=== PATIENT | male | born 1945 | race Caucasian/White ===

== ENCOUNTER 2017-07-16 08:43 | Observation (INO) | payer MEDICARE, BC ==
[~2017-07-16 08:43] MED LIST: IBUP800 PO; Keflex500 MG PO; LANS30EC PO; PRED10 PO; Prilosec Otc20 MG PO
[2017-07-16 09:46] LABS: Hematocrit 46.4 % (37.0-53.0); Hemoglobin 15.8 g/dL (13.5-17.5); Mean Corpuscular HGB 30.4 pg (26.0-34.0); Mean Corpuscular HGB Conc 34.1 g/dL (31.5-36.5); Mean Corpuscular Volume 89 fL (80-100); Mean Platelet Volume 10.2 fL (9.1-12.4); Platelet Count 243 K/mm3 (150-400); RDW Coefficient Variation 12.2 % (11.7-14.2); RDW Standard Deviation 39.7 fL (35.1-46.3); White Blood Cell Count 8.18 K/mm3 (4.00-11.30)
[2017-07-17 04:23] LABS: Hematocrit 43.6 % (37.0-53.0); Hemoglobin 14.9 g/dL (13.5-17.5); Mean Corpuscular HGB 30.2 pg (26.0-34.0); Mean Corpuscular HGB Conc 34.2 g/dL (31.5-36.5); Mean Corpuscular Volume 88 fL (80-100); Mean Platelet Volume 10.5 fL (9.1-12.4); Platelet Count 216 K/mm3 (150-400); RDW Coefficient Variation 12.2 % (11.7-14.2); RDW Standard Deviation 39.4 fL (35.1-46.3); Red Blood Cell Count 4.93 M/mm3 (4.30-5.90); White Blood Cell Count 8.41 K/mm3 (4.00-11.30)
[2017-07-17 04:47] LABS: Albumin, Blood 3.4 g/dL (3.4-5.0); Anion Gap 8 mmol/L (6-16); Blood Urea Nitrogen 14 mg/dL (8-24); CO2, Blood 25 mmol/L (21-32); Calcium, Blood 8.3 mg/dL (8.5-10.1); Chloride, Blood 108 mmol/L (98-108); Creatinine, Blood 0.88 mg/dL (0.60-1.20); Glomerular Filtration Rate >60 (60-); Glucose, Blood 104 mg/dL (70-99); Phosphorus, Blood 2.9 mg/dL (2.5-4.9); Potassium, Blood 3.7 mmol/L (3.5-5.5); Sodium, Blood 141 mmol/L (136-145)
== END 2017-07-17 10:55 | disposition home or self-care (01) ==
LOC: ORSCMMR 08:43 → SURS 12:07 → ORSCMMR 12:07 → SURS 12:07
PROVIDERS: Internal Medicine Gastroenterology
PROC: 0W3P8ZZ Control Bleeding in Gastrointestinal Tract, Via Natural or Artificial Opening Endoscopic (ICD-10-PCS; principal; 2017-07-16 08:30)
DX: K91.840 Postprocedural hemorrhage of a digestive system organ or structure following a digestive system procedure (principal); K21.9 Gastro-esophageal reflux disease without esophagitis; Z88.1 Allergy status to other antibiotic agents
CPT/HCPCS: 36415; 80069; 85018; 85027; G0378; J3480; J7120

== ENCOUNTER 2018-05-29 14:12 | Inpatient (IN) | payer MEDICARE, BC ==
[~2018-05-29] VITALS: Ht 177.8 cm; Wt 83.5 kg
[2018-06-02] MEDS ORDERED: ACET325 PO (06:58)
--- NOTE | 2018-06-02 06:59 | NUR ---
Ambulatory in Day Surgery History, Chart, Medications and Allergies reviewed before start of procedure. Lungs clear T/O to Auscultation. Patient confirms NPO status and agrees with scheduled surgery. Pre-Op teaching done. Pt verbalizes understanding.
--- NOTE | 2018-06-02 19:11 | NUR ---
SHIFT SUMMARY PT WAS NAUSEATED POST OP, UNABLE TO WORK WITH THERAPY DUE TO DIZZINESS, N/V, AND FATIGUE. HAS DENIED PAIN, STILL NUMBNESS IN R THUMB. DRSG SHOWS NO SIGNS OF DRAINAGE. UP IN ROOM THIS EVENING. UNABLE TO VOID. STRAIGHT CATH COMPLETED.
--- NOTE | 2018-06-03 05:00 | NUR ---
SHIFT SUMMARY PT IS POD 1 RIGHT TSA. HE DENIES PAIN OVERNIGHT, THIS MORNING STATES 1-2/10 AND DENIES NEED FOR NARCOTIC PAIN MEDS. HE HAS REMAINED COMFORTABLE ON THE SCHEDULED TYLENOL AND TORADOL. SBA FOR AMBULATION. PT HAS NOT HAD ANY CONTINUED VOMITING, THOUGH HE HAS HAD MILD NAUSEA. SHOULDER IMMOBILIZER IN PLACE. PT IS FOLLOWING PRECAUTIONS. PT REQ STRAIGHT CATHING AT SHIFT CHANGE YESTERDAY BUT HAS BEEN ABLE TO VOID THIS SHIFT. WILL CTM UNTIL PASS TO NEXT SHIFT.
[2018-06-03 05:30] LABS: Anion Gap 7 mmol/L (6-16); Blood Urea Nitrogen 15 mg/dL (8-24); Bun/Creatinine Ratio 18.9 (12.0-20.0); CO2, Blood 26 mmol/L (21-32); Calcium, Blood 8.5 mg/dL (8.5-10.1); Chloride, Blood 108 mmol/L (98-108); Creatinine, Blood 0.79 mg/dL (0.60-1.20); Glomerular Filtration Rate >60 (60-); Glucose, Blood 114 mg/dL (70-99); Potassium, Blood 3.8 mmol/L (3.5-5.5); Sodium, Blood 141 mmol/L (136-145)
[2018-06-03 05:47] LABS: BASOPHILS ABSOLUTE AUTO 0.01 K/mm3 (0.00-0.23); BASOPHILS PERCENT AUTO 0 % (0-2); EOSINOPHILS ABSOLUTE AUTO 0.02 K/mm3 (0.00-0.68); EOSINOPHILS PERCENT AUTO 0 % (0-6); Hematocrit 37.1 % (37.0-53.0); Hemoglobin 12.4 g/dL (13.5-17.5); IMMATURE GRAN ABSOLUTE AUTO 0.04 K/mm3 (0.00-0.10); IMMATURE GRAN PERCENT AUTO 0 % (0-1); LYMPHOCYTES ABSOLUTE AUTO 1.98 K/mm3 (0.84-5.20); LYMPHOCYTES PERCENT AUTO 15 % (21-46); MONOCYTES ABSOLUTE AUTO 1.42 K/mm3 (0.16-1.47); MONOCYTES PERCENT AUTO 11 % (4-13); Mean Corpuscular HGB 31.1 pg (26.0-34.0); Mean Corpuscular HGB Conc 33.4 g/dL (31.5-36.5); Mean Corpuscular Volume 93 fL (80-100); Mean Platelet Volume 10.3 fL (9.1-12.4); NEUTROPHILS ABSOLUTE AUTO 9.69 K/mm3 (1.96-9.15); NEUTROPHILS PERCENT AUTO 74 % (41-73); Platelet Count 193 K/mm3 (150-400); RDW Coefficient Variation 12.3 % (11.7-14.2); RDW Standard Deviation 42.5 fL (35.1-46.3); Red Blood Cell Count 3.99 M/mm3 (4.30-5.90); White Blood Cell Count 13.16 K/mm3 (4.00-11.30)
--- NOTE | 2018-06-03 08:28 | NUR ---
Pt gave verbal consent for this author to treat him on 06/03/2018
[2018-06-03] MEDS ORDERED: Percocet 5-3251 EACH PO (09:02)
[2018-06-03] MEDS ORDERED: BAYER CHEWABLE81 MG PO (09:05)
--- NOTE | 2018-06-03 10:26 | NUR ---
DISCHARGE PT DISCHARGED HOME AT THIS TIME WITH SPOUSE AT SIDE. PT AND SPOUSE EDUCATED ON AND RECEIVED PRINTED DC INSTRUCTIONS AND VERBALIZED AN UNDERSTANDING. IV DC'D. 2 AQUACEL DRESSINGS GIVEN TO PT. HARD RX FOR ASA AND OXYCODONE GIVEN TO PT. ALL PERSONAL BELONGINGS GATHERED AND RETURNED TO PT.
== END 2018-06-03 10:25 | disposition home or self-care (01) | DRG 483 ==
LOC: SURS 06-02 06:09 → PRE IP 06-02 07:30 → SURS 06-02 11:58
PROVIDERS: ADMIT Orthopaedic Surgery
PROC: 0RRJ0JZ Replacement of Right Shoulder Joint with Synthetic Substitute, Open Approach (ICD-10-PCS; principal; 2018-06-02 07:30)
DX: M19.011 Primary osteoarthritis, right shoulder (principal); Z01.818 Encounter for other preprocedural examination
CPT/HCPCS: 36415; 73030; 80048; 85025; 86850; 86900; 86901; 88300; 97110; 97116; 97161; 97165; 97535; C1776; J0171; J0690; J0735; J1100; J1885; J2250; J2405; J2704; J2795; J3010; J7120

== ENCOUNTER 2018-10-13 19:08 | Emergency (ER) | payer MEDICARE, BC ==
[~2018-10-13] VITALS: Ht 177.8 cm; Wt 72.6 kg
[~2018-10-13 19:08] MED LIST changes: +ACET325 PO; +BAYER CHEWABLE81 MG PO; +ONDA4ODT MM; +Percocet 5-3251 EACH PO
[2018-10-13 20:01] LABS: BASOPHILS ABSOLUTE AUTO 0.03 K/mm3 (0.00-0.23); BASOPHILS PERCENT AUTO 0 % (0-2); EOSINOPHILS ABSOLUTE AUTO 0.18 K/mm3 (0.00-0.68); EOSINOPHILS PERCENT AUTO 1 % (0-6); Hematocrit 48.9 % (37.0-53.0); Hemoglobin 16.2 g/dL (13.5-17.5); IMMATURE GRAN ABSOLUTE AUTO 0.04 K/mm3 (0.00-0.10); IMMATURE GRAN PERCENT AUTO 0 % (0-1); LYMPHOCYTES ABSOLUTE AUTO 1.46 K/mm3 (0.84-5.20); LYMPHOCYTES PERCENT AUTO 12 % (21-46); MONOCYTES ABSOLUTE AUTO 1.13 K/mm3 (0.16-1.47); MONOCYTES PERCENT AUTO 9 % (4-13); Mean Corpuscular HGB 30.5 pg (26.0-34.0); Mean Corpuscular HGB Conc 33.1 g/dL (31.5-36.5); Mean Corpuscular Volume 92 fL (80-100); Mean Platelet Volume 10.2 fL (9.1-12.4); NEUTROPHILS ABSOLUTE AUTO 9.66 K/mm3 (1.96-9.15); NEUTROPHILS PERCENT AUTO 77 % (41-73); Platelet Count 248 K/mm3 (150-400); RDW Coefficient Variation 12.8 % (11.7-14.2); RDW Standard Deviation 43.1 fL (35.1-46.3); Red Blood Cell Count 5.32 M/mm3 (4.30-5.90)
[2018-10-13 20:22] LABS: Alanine Aminotransfer (ALT/SGP 24 U/L (12-78); Albumin, Blood 3.9 g/dL (3.4-5.0); Alk Phos 112 U/L (50-136); Anion Gap 5 mmol/L (6-16); Aspartate Aminotrans (AST/SGOT 12 U/L (12-37); Bilirubin, Total 0.6 mg/dL (0.1-1.0); Blood Urea Nitrogen 20 mg/dL (8-24); Bun/Creatinine Ratio 19.2 (12.0-20.0); CO2, Blood 26 mmol/L (21-32); Calcium, Blood 8.8 mg/dL (8.5-10.1); Chloride, Blood 108 mmol/L (98-108); Creatinine, Blood 1.04 mg/dL (0.60-1.20); Glomerular Filtration Rate >60 (60-); Glucose, Blood 124 mg/dL (70-99); Potassium, Blood 3.8 mmol/L (3.5-5.5); Sodium, Blood 139 mmol/L (136-145); Total Protein, Blood 7.9 g/dL (6.4-8.2)
[2018-10-13 23:20] LABS: Source, Urine Clean Catch
[2018-10-13 23:32] LABS: Bilirubin, Urine Neg (Neg); Blood, Urine Neg (Neg); Glucose Qualitative, Urine Neg (Neg); Ketones, Urine 1+ (Neg); Leukocyte Esterase, Urine Neg (Neg); Nitrite, Urine Neg (Neg); Protein, Urine 1+ (Neg); Urobilinogen, Urine NORM (Normal)
[2018-10-13 23:33] LABS: Appearance, Urine Clear (Clear); Color, Urine Yellow (P-Yellow)
== END 2018-10-14 00:12 | disposition home or self-care (01) ==
LOC: ER 19:08
PROVIDERS: Physician Assistant
DX: R19.7 Diarrhea, unspecified (principal); Z88.1 Allergy status to other antibiotic agents; Z79.899 Other long term (current) drug therapy; K21.9 Gastro-esophageal reflux disease without esophagitis
CPT/HCPCS: 36415; 80053; 85025; 96361; 96374; 99283-25; J2405; J7030

== ENCOUNTER → 2018-10-14 | Outpatient (CLI) | payer MEDICARE, BC ==
[2018-10-14 12:25] LABS: Adenovirus F 40/41 Not Detected (NOT DETECT); Astrovirus Not Detected (NOT DETECT); Campylobacter Sp Not Detected (NOT DETECT); Cryptosporidium Not Detected (NOT DETECT); Cyclospora Cayetanensis Not Detected (NOT DETECT); E. Coli O157 Not Detected (NOT DETECT); Entamoeba Histolytica Not Detected (NOT DETECT); Enteroaggregative E. coli-EAEC Not Detected (NOT DETECT); Enteropathogenic E. coli-EPEC Not Detected (NOT DETECT); Enterotoxigenic E. coli-ETEC Not Detected (NOT DETECT); Giardia Lamblia Not Detected (NOT DETECT); Norovirus GI/GII Not Detected (NOT DETECT); Plesiomonas Shigelloides Not Detected (NOT DETECT); Rotavirus A Not Detected (NOT DETECT); Salmonella Sp Not Detected (NOT DETECT); Sapovirus Not Detected (NOT DETECT); Shiga Toxin-prod E. coli-STEC Not Detected (NOT DETECT); Shigella/Enteroin E. coli-EIEC Not Detected (NOT DETECT); Vibrio Cholerae Not Detected (NOT DETECT); Vibrio Sp Not Detected (NOT DETECT); Yersinia Enterocolitica Not Detected (NOT DETECT)
== END ==
LOC: LAB 10:37 → LAB SHORT 10:37
PROVIDERS: Emergency Medicine
DX: R19.7 Diarrhea, unspecified (principal)
CPT/HCPCS: 0097U

== ENCOUNTER 2019-03-05 11:48 | Inpatient (IN) | payer MEDICARE, BC ==
[~2019-03-05] VITALS: Ht 177.8 cm; Wt 82.0 kg
--- NOTE | 2019-03-09 13:08 | NUR ---
History, Chart, Medications and Allergies reviewed before start of procedure. Patient confirms NPO status and agrees with scheduled surgery. Patient reports completing Chlorhexadine shower X2 prior to admission to hospital. Pre-Op teaching done. Pt verbalizes understanding. Surgical site prepped with 2% Chlorhexidine cloth wipe. Patient has hearing aids in and all other belongings in belonging bag under gurney.
[2019-03-10 04:03] LABS: BASOPHILS ABSOLUTE AUTO 0.01 K/mm3 (0.00-0.23); BASOPHILS PERCENT AUTO 0 % (0-2); EOSINOPHILS PERCENT AUTO 0 % (0-6); Hematocrit 35.4 % (37.0-53.0); Hemoglobin 12.1 g/dL (13.5-17.5); IMMATURE GRAN ABSOLUTE AUTO 0.07 K/mm3 (0.00-0.10); IMMATURE GRAN PERCENT AUTO 0 % (0-1); LYMPHOCYTES PERCENT AUTO 6 % (21-46); MONOCYTES ABSOLUTE AUTO 1.59 K/mm3 (0.16-1.47); MONOCYTES PERCENT AUTO 9 % (4-13); Mean Corpuscular HGB 30.7 pg (26.0-34.0); Mean Corpuscular HGB Conc 34.2 g/dL (31.5-36.5); Mean Corpuscular Volume 90 fL (80-100); Mean Platelet Volume 10.1 fL (9.1-12.4); NEUTROPHILS ABSOLUTE AUTO 14.82 K/mm3 (1.96-9.15); NEUTROPHILS PERCENT AUTO 85 % (41-73); Platelet Count 212 K/mm3 (150-400); RDW Coefficient Variation 11.9 % (11.7-14.2); RDW Standard Deviation 38.8 fL (35.1-46.3); Red Blood Cell Count 3.94 M/mm3 (4.30-5.90); White Blood Cell Count 17.49 K/mm3 (4.00-11.30)
[2019-03-10 04:19] LABS: Anion Gap 11 mmol/L (6-16); Blood Urea Nitrogen 20 mg/dL (8-24); Bun/Creatinine Ratio 22.9 (12.0-20.0); CO2, Blood 21 mmol/L (21-32); Chloride, Blood 110 mmol/L (98-108); Creatinine, Blood 0.88 mg/dL (0.60-1.20); Glomerular Filtration Rate >60 (60-); Glucose, Blood 161 mg/dL (70-99); Potassium, Blood 4.2 mmol/L (3.5-5.5); Sodium, Blood 142 mmol/L (136-145)
--- NOTE | 2019-03-10 04:34 | NUR ---
SHIFT SUMMARY POD 1 L TSA AAOX4, VSS. PT REPORTS NO PAIN HE IS STILL NUMB FROM THE BLOCK. HE STATES THAT THE NUMBNESS IS RECEDING SOME. CAN FEEL IN EXTREMETIES. WIGGLES FINGERS WELL, WARM, CAP REFILL <3, PULSES STRONG. PT HAS VOIDED. TOLERATING PO SLOWLY BUT WELL, HAS EATEN CRACKERS AND SOME PO FLUIDS. DENIES NAUSEA. HAS BEEN MEDICATED FOR PAIN PER EMAR WITH SCHEDULED MEDICATIONS.
[2019-03-10] MEDS ORDERED: Percocet 5-3251 EACH PO (10:36)
[2019-03-10] MEDS ORDERED: Aspirin EC81 MG PO (10:37)
--- NOTE | 2019-03-10 11:30 | NUR ---
DISCHARGE: PT EATING AND DRINKING, VOIDING, PASSING GAS. PT BEEN CLEARED BY THERAPY TO GO HOME. PT REPORTS O2 LEVEL WHEN WORKING WITH THERAPY WAS 97% ON RA. PT DENIES SOB. PT/FAMILY REPORTS UNDERSTANDING OF DISCHARGE INSTRUCTIONS INCLUDING POLAR PAC AND DRESSING CHANGES. PT WAS SENT WITH POLAR PAC AND DRESSING SUPPLIES. PT REQ TO AMBULATE OUT OF HOSPITAL. IV WAS TAKEN OUT PRIOR TO PT LEAVING. PT CONT TO DENY PAIN.
--- NOTE | 2019-03-12 07:47 | NUR ---
03/12/19 0747 Randee King VERIFICATIONS: EDIT CHART.
== END 2019-03-10 11:45 | disposition home or self-care (01) | DRG 483 ==
LOC: SURS 03-09 10:28 → PRE IP 03-09 12:45 → SURS 03-09 18:30
PROVIDERS: ADMIT Orthopaedic Surgery
PROC: 0RRK0JZ Replacement of Left Shoulder Joint with Synthetic Substitute, Open Approach (ICD-10-PCS; principal; 2019-03-09 13:30)
DX: M19.012 Primary osteoarthritis, left shoulder (principal); K21.9 Gastro-esophageal reflux disease without esophagitis; M19.90 Unspecified osteoarthritis, unspecified site
CPT/HCPCS: 36415; 73030; 80048; 85025; 86850; 86900; 86901; 88300; 97110; 97161; 97165; 97535; C1776; J0171; J0690; J0735; J1100; J1885; J2405; J2704; J2795; J3010; J3370; J7120

== ENCOUNTER 2022-08-05 06:47 | Day surgery (SDC) | payer MEDICARE, BC ==
[~2022-08-05] VITALS: Ht 177.8 cm; Wt 79.1 kg
[~2022-08-05 06:47] MED LIST changes: +ASPI81CH PO; +Aspirin EC81 MG PO; +CLOP75 PO; +ELIQUIS5 M2 PO; +LOSARTAN POTASS50 M1; +METO25ER PO; +PRAV20 PO; +ROSU10TA PO; +SILD50TA PO
[2022-08-05 07:30] VITALS: BP 152/84
[2022-08-05] MEDS ORDERED: OMEP20ER PO (07:40)
--- NOTE | 2022-08-05 08:03 | NUR ---
08/05/22 0803 [place] HISTORY, CHART, MEDICATIONS AND ALLERGIES REVIEWED BEFORE START OF PROCEDURE. PATIENT CONFIRMS NPO STATUS AND AGREES WITH SCHEDULED PROCEDURE. 3-LEAD EKG REVIEWED WITH PHYSICIAN PRIOR TO START OF PROCEDURE. MONITOR INTACT WITH CONTINUOUS PULSE OXIMETRY,CAPNOGRAPHY, 3-LEAD EKG, INTERMITTENT BP. SUPPLEMENTAL O2 TO BE TITRATED THROUGHOUT PROCEDURE TO MAINTAIN O2 SATURATION ABOVE 90%. PATIENT DETERMINED TO BE ASA APPROPRIATE FOR PROPOFOL SEDATION PRIOR TO START OF PROCEDURE BY .
[2022-08-05 08:30] VITALS: BP 138/83
[2022-08-05 08:45] VITALS: BP 158/90
--- NOTE | 2022-08-05 08:54 | NUR ---
Discharge instructions reviewed with patient. Patient verbalizes understanding. Copy given to patient to take home. Pt tolerated fluids. iv dc'd intact. Patient States Post-Procedure ride home has been arranged. Discharged via wheelchair to private car for ride home.
== END 2022-08-05 23:19 | disposition home or self-care (01) ==
LOC: ORSCMMR 06:47 → ORD 08:00 → ORSCMMR 08:00
PROVIDERS: Internal Medicine Gastroenterology
PROC: 0DJD8ZZ Inspection of Lower Intestinal Tract, Via Natural or Artificial Opening Endoscopic (ICD-10-PCS; principal; 2022-08-05 08:00)
DX: Z12.11 Encounter for screening for malignant neoplasm of colon (principal); Z86.010 Personal history of colon polyps; K57.30 Diverticulosis of large intestine without perforation or abscess without bleeding; I48.0 Paroxysmal atrial fibrillation; K21.9 Gastro-esophageal reflux disease without esophagitis; Z79.01 Long term (current) use of anticoagulants; Z79.02 Long term (current) use of antithrombotics/antiplatelets; Z79.899 Other long term (current) drug therapy
CPT/HCPCS: J0461; J2704; J7120

== ENCOUNTER → 2022-11-07 | Outpatient (CLI) | payer MEDICARE, BC ==
[~2022-11-07] MED LIST changes: +OMEP20ER PO
[2022-11-07 13:45] LABS: BASOPHILS ABSOLUTE AUTO 0.02 K/mm3 (0.00-0.23); BASOPHILS PERCENT AUTO 0 % (0-2); EOSINOPHILS ABSOLUTE AUTO 0.04 K/mm3 (0.00-0.68); EOSINOPHILS PERCENT AUTO 1 % (0-6); IMMATURE GRAN ABSOLUTE AUTO 0.05 K/mm3 (0.00-0.10); IMMATURE GRAN PERCENT AUTO 1 % (0-1); LYMPHOCYTES ABSOLUTE AUTO 1.09 K/mm3 (0.84-5.20); LYMPHOCYTES PERCENT AUTO 21 % (21-46); MONOCYTES PERCENT AUTO 18 % (4-13); Mean Corpuscular HGB 27.5 pg (26.0-34.0); Mean Corpuscular HGB Conc 32.7 g/dL (31.5-36.5); Mean Corpuscular Volume 84 fL (80-100); Mean Platelet Volume 11.5 fL (9.1-12.4); NEUTROPHILS ABSOLUTE AUTO 3.01 K/mm3 (1.96-9.15); NEUTROPHILS PERCENT AUTO 59 % (41-73); Platelet Count 180 K/mm3 (150-400); RDW Coefficient Variation 14.5 % (11.7-14.2); RDW Standard Deviation 44.1 fL (35.1-46.3); Red Blood Cell Count 5.82 M/mm3 (4.30-5.90); White Blood Cell Count 5.11 K/mm3 (4.00-11.30)
[2022-11-07 14:48] LABS: Albumin, Blood 3.3 g/dL (3.4-5.0); Albumin/Globulin Ratio 0.8 (0.8-1.8); Bilirubin, Total 0.5 mg/dL (0.1-1.0); Bun/Creatinine Ratio 15.4 (12.0-20.0); Calcium, Blood 8.7 mg/dL (8.5-10.1); Creatinine, Blood 1.23 mg/dL (0.60-1.20); Globulin, Blood 4.3 g/dL (2.2-4.0); Potassium, Blood 4.5 mmol/L (3.5-5.5); Total Protein, Blood 7.6 g/dL (6.4-8.2)
== END | disposition home or self-care (01) ==
LOC: LAB SHORT 11:00 → LAB 11:00
PROVIDERS: Physician Assistant
DX: R19.7 Diarrhea, unspecified (principal)
CPT/HCPCS: 80053; 85025

== ENCOUNTER 2022-12-24 05:57 | Day surgery (SDC) | payer OTHER ==
[2022-12-24] VITALS (8 sets, daily range): BP systolic 121–167; BP diastolic 77–110
[~2022-12-24 05:57] MED LIST changes: +ENTRESTO 24 MG1 EACH PO; +FURO20 PO; +KLOR-CON 1010 ME9 PO; -LOSARTAN POTASS50 M1; +LOSARTAN POTASS50 M1 PO; +METO50ER PO; +OMEPRAZOLE20 M1 PO; +PANT20 PO; +SPIR25 PO
--- NOTE | 2022-12-24 07:05 | NUR ---
DR NAVARRO ARRIVED. DR WATERS HAS SEEN PT AND IS WAITING.
--- NOTE | 2022-12-24 07:23 | NUR ---
PT TOLERATED SYNCHRONIZED CARDIOVERSION WELL.
--- NOTE | 2022-12-24 07:44 | NUR ---
PT'S IN ROOM. CALL LIGHT IN REACH.
[2022-12-24] MEDS ORDERED: Amiodarone HCl200 MG PO (08:05)
--- NOTE | 2022-12-24 08:39 | NUR ---
DISCHARGE INSTRUCTIONS REVIEWED ALL QUESTIONS ANSWERED. 20 G IV DISCONTINUED FROM RIGHT AC WITH INTACT CANNULA. PT ESCORTED OUT VIA WHEELCHAIR ESCORT.
== END 2022-12-25 22:58 | disposition home or self-care (01) ==
LOC: MHTC 05:57
DX: I48.0 Paroxysmal atrial fibrillation (principal); I48.3 Typical atrial flutter; I10 Essential (primary) hypertension; E78.5 Hyperlipidemia, unspecified; K21.9 Gastro-esophageal reflux disease without esophagitis; M81.0 Age-related osteoporosis without current pathological fracture; Z72.0 Tobacco use
CPT/HCPCS: 92960; 93005; 93010; J2371; J2704

== ENCOUNTER 2023-01-08 05:58 | Day surgery (SDC) | payer OTHER ==
[2023-01-08] VITALS (18 sets, daily range): BP systolic 109–156; BP diastolic 70–124
[~2023-01-08 05:58] MED LIST changes: +Amiodarone HCl200 MG PO
[2023-01-08] MEDS ORDERED: JARDIANCE10 MG PO (06:26)
--- NOTE | 2023-01-08 07:42 | NUR ---
PT TOLERATED CARDIOVERSION WELL. CALL LIGHT IN REACH.
--- NOTE | 2023-01-08 07:52 | NUR ---
PT SITTING UP TALKING. PT'S IN ROOM. CALL LIGHT IN REACH.
--- NOTE | 2023-01-08 08:35 | NUR ---
DISCHARGE INSTURCTIONS REVIEWED ALL QUESTIONS ANSWERED. 20 G IV DISCONTINUED FROM RIGHT AC WITH INTACT CANNULA. PT ESCORTED OUT VIA WHEELCHAIR ESCORT.
== END 2023-01-08 22:56 | disposition home or self-care (01) ==
LOC: MHTC 05:58
DX: I48.0 Paroxysmal atrial fibrillation (principal); I48.3 Typical atrial flutter; R94.31 Abnormal electrocardiogram [ECG] [EKG]; Z79.899 Other long term (current) drug therapy
CPT/HCPCS: 92960; J2250; J2704; J3010; J7030

== ENCOUNTER 2023-02-15 02:28 | Inpatient (IN) | payer OTHER ==
[~2023-02-15] VITALS: Ht 172.7 cm; Wt 78.9 kg
[~2023-02-15 02:28] MED LIST changes: +JARDIANCE10 MG PO; -METO50ER PO
[2023-02-15 02:51] LABS: BASOPHILS ABSOLUTE AUTO 0.02 K/mm3 (0.00-0.23); BASOPHILS PERCENT AUTO 0 % (0-2); EOSINOPHILS ABSOLUTE AUTO 0.22 K/mm3 (0.00-0.68); EOSINOPHILS PERCENT AUTO 1 % (0-6); Hematocrit 44.1 % (37.0-53.0); Hemoglobin 14.6 g/dL (13.5-17.5); IMMATURE GRAN ABSOLUTE AUTO 0.06 K/mm3 (0.00-0.10); IMMATURE GRAN PERCENT AUTO 0 % (0-1); LYMPHOCYTES ABSOLUTE AUTO 1.85 K/mm3 (0.84-5.20); LYMPHOCYTES PERCENT AUTO 10 % (21-46); MONOCYTES ABSOLUTE AUTO 1.23 K/mm3 (0.16-1.47); MONOCYTES PERCENT AUTO 7 % (4-13); Mean Corpuscular HGB 29.4 pg (26.0-34.0); Mean Corpuscular HGB Conc 33.1 g/dL (31.5-36.5); Mean Corpuscular Volume 89 fL (80-100); Mean Platelet Volume 11.2 fL (9.1-12.4); NEUTROPHILS ABSOLUTE AUTO 14.95 K/mm3 (1.96-9.15); NEUTROPHILS PERCENT AUTO 82 % (41-73); Platelet Count 262 K/mm3 (150-400); RDW Coefficient Variation 14.4 % (11.7-14.2); RDW Standard Deviation 46.4 fL (35.1-46.3); Red Blood Cell Count 4.97 M/mm3 (4.30-5.90); White Blood Cell Count 18.33 K/mm3 (4.00-11.30)
[2023-02-15] MEDS ORDERED: C COMPLEX1000 M1 PO (03:01)
[2023-02-15 03:10] LABS: Albumin, Blood 3.7 g/dL (3.4-5.0); Bilirubin, Total 0.6 mg/dL (0.1-1.0); Bun/Creatinine Ratio 22.2 (12.0-20.0); Calcium, Blood 8.4 mg/dL (8.5-10.1); Creatinine, Blood 1.26 mg/dL (0.60-1.20); Globulin, Blood 3.7 g/dL (2.2-4.0); Magnesium, Blood 2.1 mg/dL (1.6-2.4); Potassium, Blood 4.6 mmol/L (3.5-5.5); Total Protein, Blood 7.4 g/dL (6.4-8.2)
[2023-02-15 03:17] LABS: Source, Urine Voided
[2023-02-15 03:23] LABS: Bilirubin, Urine Neg (Neg); Blood, Urine 1+ (Neg); Glucose Qualitative, Urine 4+ (Neg); Ketones, Urine Neg (Neg); Leukocyte Esterase, Urine 2+ (Neg); Nitrite, Urine Neg (Neg); Protein, Urine 2+ (Neg); Specific Gravity, Urine 1.025 (1.003-1.022); Urobilinogen, Urine NORM (Normal)
[2023-02-15 03:27] LABS: Appearance, Urine Hazy (Clear); Color, Urine Yellow (P-Yellow)
[2023-02-15 03:59] LABS: Bacteria Few /hpf; Red Blood Cells, Urine 0-2 /hpf (0-2); Squamous Epithelial Cells Rare /hpf (Few); White Blood Cells, Urine TNTC /hpf (0-5)
[2023-02-15 05:46] VITALS: BP 140/76
[2023-02-15] MEDS ORDERED: Aspir 8181 MG PO (06:18)
[2023-02-15] MEDS ORDERED: LOSA50 PO (06:19)
[2023-02-15] MEDS ORDERED: SILD50TA PO (06:20)
[2023-02-15] MEDS ORDERED: AMIODARONE HCL200 M1 PO (06:22)
--- NOTE | 2023-02-15 06:31 | NUR ---
ADMIT NOTE 77 YR OLD MALE ADMITTED TO FLOOR FROM THE ED WITH DX OF VERTIGO. ED RN REPORTED PT HAD BEEN SEEN IN THE ED YEATERDAY AND RECEIVED 2 LITERS OF IVF AND SENT HOME. WHEN HOME, HAD VERTIGO AND FELL OFF THE TOILET "TWICE" CAUSING ABRAESION TO NOSE, BUMP ON FOREHEAD AND SKIN TEAR OF LEFT ARM. ALERT AND ORIENTED. WAS ACCOMPANIED BY WHO HELPED ANSWER QUESTIONS. ORIENTED TO USE OF CALL LIGHT. CALL LIGHT IN REACH. RAILS UP X 2 FOR SAFETY. WILL CONTINUE TO MONITOR. PLACED ON CONTACT ISO PRECAUTIONS UNTIL GI PANEL IS OBTAINED AND REVIEWED.
[2023-02-15 07:56] VITALS: BP 127/82
[2023-02-15 11:57] LABS: Adenovirus F 40/41 Not Detected (NOT DETECT); Astrovirus Not Detected (NOT DETECT); Campylobacter Sp Not Detected (NOT DETECT); Cryptosporidium Not Detected (NOT DETECT); Cyclospora Cayetanensis Not Detected (NOT DETECT); E. Coli O157 Not Detected (NOT DETECT); Entamoeba Histolytica Not Detected (NOT DETECT); Enteroaggregative E. coli-EAEC Not Detected (NOT DETECT); Enteropathogenic E. coli-EPEC Not Detected (NOT DETECT); Enterotoxigenic E. coli-ETEC Not Detected (NOT DETECT); Giardia Lamblia Not Detected (NOT DETECT); Norovirus GI/GII Not Detected (NOT DETECT); Plesiomonas Shigelloides Not Detected (NOT DETECT); Rotavirus A Not Detected (NOT DETECT); Salmonella Sp Not Detected (NOT DETECT); Sapovirus Not Detected (NOT DETECT); Shiga Toxin-prod E. coli-STEC Not Detected (NOT DETECT); Shigella/Enteroin E. coli-EIEC Not Detected (NOT DETECT); Vibrio Cholerae Not Detected (NOT DETECT); Vibrio Sp Not Detected (NOT DETECT); Yersinia Enterocolitica Not Detected (NOT DETECT)
--- NOTE | 2023-02-15 18:12 | NUR ---
SHIFT SUMMARY PATIENT GI PANEL RESULTED NEGATIVE THIS SHIFT. CONTINUES TO HAVE DIARRHEA. STRAIGHT CATHED SELF THIS AM, STATES HE NORMALLY DOES IT BID AND IS STILL ABLE TO VOID THROUGHOUT THE DAY. NO SYNCOPAL EPISODES THIS SHIFT, A/O X4. WILL CONTINUE TO MONITOR
[2023-02-15 19:09] VITALS: BP 112/69
[2023-02-15 21:52] VITALS: BP 121/74
--- NOTE | 2023-02-15 21:58 | NUR ---
AMBULATED OUT OF ROOM, VOICED "RASH ALL OVER" AND ITCHING. NOTE REDDENED AREAS OF ARMS AND LEGS. CALL PLACED TO MD. ORDER FOR BENADRYL 25 MG PO X 1 OBTAINED. CALL LIGHT IN REACH. VSS.
[2023-02-15 23:39] VITALS: BP 94/67
--- NOTE | 2023-02-16 00:02 | NUR ---
LIQUID STOOLS CONTINUE. BP TRENDING DOWN, NOTIFIED. IMMODIUM PO ORDERED, ADMIN. SEE MAR FOR DETAILS. CALL LIGHT IN REACH. LEGS ELEVATED.
--- NOTE | 2023-02-16 01:26 | NUR ---
RESTING QUIETLY. CALL LIGHT IN REACH
--- NOTE | 2023-02-16 03:09 | NUR ---
PRINCIPAL DATABASE DEVELOPER SUMMARY BP TREND DOWN AT HS, HAD BEEN UP TO BATHROOM SEVERAL TIMES, LIQUID STOOL - RODRIGUEZ. NOTIFIED, ORDERS FOR IMMODIUM OBTAINED. MED GIVEN. HAS BEEN RESTING QUIETLY WITH FEW INTERRUPTIONS SINCE. WILL RETAKE BP FOR FOLLOW UP. NO NOTED S/S ACUTE DISTRESS AT THIS TIME. WHEN UP, ASSISTED TO BATHROOM DUE TO VERTIGO. MED TELE SR IN THE 60'S. DRESSING APPLIED ON LEFT ARM POST SHOWER. CALL LIGHT IN REACH. WILL CONTINUE TO MONITOR.
[2023-02-16 04:53] VITALS: BP 122/78
[2023-02-16 05:43] LABS: BASOPHILS ABSOLUTE AUTO 0.02 K/mm3 (0.00-0.23); BASOPHILS PERCENT AUTO 0 % (0-2); EOSINOPHILS ABSOLUTE AUTO 0.16 K/mm3 (0.00-0.68); EOSINOPHILS PERCENT AUTO 1 % (0-6); Hematocrit 45.3 % (37.0-53.0); Hemoglobin 15.3 g/dL (13.5-17.5); IMMATURE GRAN ABSOLUTE AUTO 0.05 K/mm3 (0.00-0.10); IMMATURE GRAN PERCENT AUTO 0 % (0-1); LYMPHOCYTES ABSOLUTE AUTO 2.16 K/mm3 (0.84-5.20); LYMPHOCYTES PERCENT AUTO 15 % (21-46); MONOCYTES ABSOLUTE AUTO 1.22 K/mm3 (0.16-1.47); MONOCYTES PERCENT AUTO 9 % (4-13); Mean Corpuscular HGB 29.3 pg (26.0-34.0); Mean Corpuscular HGB Conc 33.8 g/dL (31.5-36.5); Mean Corpuscular Volume 87 fL (80-100); Mean Platelet Volume 10.4 fL (9.1-12.4); NEUTROPHILS ABSOLUTE AUTO 10.39 K/mm3 (1.96-9.15); NEUTROPHILS PERCENT AUTO 74 % (41-73); Platelet Count 285 K/mm3 (150-400); RDW Coefficient Variation 14.6 % (11.7-14.2); RDW Standard Deviation 46.2 fL (35.1-46.3); Red Blood Cell Count 5.23 M/mm3 (4.30-5.90)
[2023-02-16 06:08] LABS: Albumin, Blood 3.7 g/dL (3.4-5.0); Bilirubin, Total 0.7 mg/dL (0.1-1.0); Calcium, Blood 8.8 mg/dL (8.5-10.1); Creatinine, Blood 1.94 mg/dL (0.60-1.20); Globulin, Blood 3.7 g/dL (2.2-4.0); Magnesium, Blood 2.1 mg/dL (1.6-2.4); Phosphorus, Blood 4.2 mg/dL (2.5-4.9); Potassium, Blood 4.3 mmol/L (3.5-5.5); Total Protein, Blood 7.4 g/dL (6.4-8.2)
[2023-02-16 07:55] VITALS: BP 91/62
[2023-02-16 14:50] VITALS: BP 99/67
--- NOTE | 2023-02-16 17:21 | NUR ---
SHIFT SUMMARY PATIENT SLEEPING A MAJORITY OF SHIFT, C/O EXHAUSTION. SEVERAL BOWEL MOVEMENTS THROUGHOUT THE SHIFT, TOTALING 450ML LIQUID STOOL. BLOOD PRESSURES REMAIN ON LOW SIDE THROUGHOUT SHIFT. 500ML NS GIVEN, NO SIGNS OF OVERLOAD. NO SYNCOPAL EPISODES, NO RASH/HIVES THIS SHIFT. WILL CONTINUE TO MONITOR
[2023-02-16 20:16] VITALS: BP 117/74
[2023-02-17 04:05] VITALS: BP 93/65
--- NOTE | 2023-02-17 04:36 | NUR ---
LIQUID STOOLS CONTINUE. PT ENCOURAGED TO DRINK FLUIDS TO REPLACE FLUIDS BUT PT NOT RECEPTIVE TO IT. BP TRENDING DOWN (SEE DOC FLOW SHEETS). MD NOTIFIED AND LR ORDERED @ 100 ML/HR X 1000 ML. CALL LIGHT IN REACH
--- NOTE | 2023-02-17 05:01 | NUR ---
PASTE THINNER SUMMARY BP TRENDING DOWN, OTHERWISE VSS. CONTINUE TO HAVE LIQUID STOOLS AND RELUCTANT TO INCREASE HIS PO FLUID INTAKE. MD NOTIFIED AND ORDERS FOR LR AT 100 ML/HR X 1 LITER OBTAINED. IVF INFUSING. A/O X 4. AT BEDSIDE FOR SUPPORT. HAS BEEN RESTING QUIETLY MOST OF THE SHIFT. CALL LIGHT IN REACH. HOB ELEVATED TO 30% APPROX. WILL CONTINUE TO MONITOR. RAILS UP X 2 FOR SAFETY.
[2023-02-17 06:15] LABS: BASOPHILS ABSOLUTE AUTO 0.01 K/mm3 (0.00-0.23); BASOPHILS PERCENT AUTO 0 % (0-2); EOSINOPHILS ABSOLUTE AUTO 0.31 K/mm3 (0.00-0.68); EOSINOPHILS PERCENT AUTO 3 % (0-6); Hematocrit 44.7 % (37.0-53.0); Hemoglobin 15.2 g/dL (13.5-17.5); IMMATURE GRAN ABSOLUTE AUTO 0.04 K/mm3 (0.00-0.10); IMMATURE GRAN PERCENT AUTO 0 % (0-1); LYMPHOCYTES PERCENT AUTO 14 % (21-46); MONOCYTES ABSOLUTE AUTO 1.25 K/mm3 (0.16-1.47); MONOCYTES PERCENT AUTO 12 % (4-13); Mean Corpuscular HGB 28.8 pg (26.0-34.0); Mean Corpuscular Volume 85 fL (80-100); Mean Platelet Volume 10.8 fL (9.1-12.4); NEUTROPHILS ABSOLUTE AUTO 7.55 K/mm3 (1.96-9.15); NEUTROPHILS PERCENT AUTO 71 % (41-73); Platelet Count 256 K/mm3 (150-400); RDW Coefficient Variation 14.6 % (11.7-14.2); RDW Standard Deviation 44.7 fL (35.1-46.3); Red Blood Cell Count 5.27 M/mm3 (4.30-5.90); White Blood Cell Count 10.66 K/mm3 (4.00-11.30)
[2023-02-17 06:36] LABS: Albumin, Blood 3.5 g/dL (3.4-5.0); Anion Gap 8 mmol/L (6-16); Blood Urea Nitrogen 45 mg/dL (8-24); Bun/Creatinine Ratio 20.1 (12.0-20.0); CO2, Blood 15 mmol/L (21-32); Calcium, Blood 8.7 mg/dL (8.5-10.1); Chloride, Blood 114 mmol/L (98-108); Creatinine, Blood 2.24 mg/dL (0.60-1.20); Glomerular Filtration Rate 30 (60-); Glucose, Blood 117 mg/dL (70-99); Phosphorus, Blood 4.6 mg/dL (2.5-4.9); Sodium, Blood 137 mmol/L (136-145)
[2023-02-17 07:36] VITALS: BP 95/63
[2023-02-17 15:34] VITALS: BP 102/69
[2023-02-17] MEDS ORDERED: METOPROLOL SUCC25 MG PO (16:21)
--- NOTE | 2023-02-17 19:22 | NUR ---
SHIFT SUMMARY: PT A/O X 4, STANDBY ASSIST, PLEASANT AND COOPERATIVE. PT HAD LOW BP THIS AM AND BP, DIURETIC MEDICATIONS HELD. 1 LITER LR GIVEN PER ORDER WITH SLIGHT IMPROVED BP THIS AFTERNOON. PT CONTINUES TO HAVE WATERY STOOLS BUT STATED IMPROVED SLIGHTLY AFTER EATING BANANA FLAKES.
[2023-02-17 19:44] VITALS: BP 106/72
[2023-02-18] VITALS (7 sets, daily range): BP systolic 90–117; BP diastolic 53–79
[2023-02-18 05:18] LABS: BASOPHILS ABSOLUTE AUTO 0.01 K/mm3 (0.00-0.23); BASOPHILS PERCENT AUTO 0 % (0-2); EOSINOPHILS ABSOLUTE AUTO 0.23 K/mm3 (0.00-0.68); EOSINOPHILS PERCENT AUTO 2 % (0-6); Hematocrit 48.3 % (37.0-53.0); Hemoglobin 16.9 g/dL (13.5-17.5); IMMATURE GRAN ABSOLUTE AUTO 0.05 K/mm3 (0.00-0.10); IMMATURE GRAN PERCENT AUTO 0 % (0-1); LYMPHOCYTES ABSOLUTE AUTO 1.88 K/mm3 (0.84-5.20); LYMPHOCYTES PERCENT AUTO 16 % (21-46); MONOCYTES ABSOLUTE AUTO 1.26 K/mm3 (0.16-1.47); MONOCYTES PERCENT AUTO 11 % (4-13); Mean Corpuscular HGB 29.1 pg (26.0-34.0); Mean Corpuscular Volume 83 fL (80-100); Mean Platelet Volume 10.3 fL (9.1-12.4); NEUTROPHILS ABSOLUTE AUTO 8.19 K/mm3 (1.96-9.15); NEUTROPHILS PERCENT AUTO 71 % (41-73); Platelet Count 287 K/mm3 (150-400); RDW Coefficient Variation 14.5 % (11.7-14.2); RDW Standard Deviation 43.7 fL (35.1-46.3); White Blood Cell Count 11.62 K/mm3 (4.00-11.30)
--- NOTE | 2023-02-18 05:22 | NUR ---
SHIFT SUMMARY: PT IS ADMITTED FOR SYNCOPE AND US A FULL CODE. IS ALERT AND ABLE TO MAKE NEEDS KNOWN. 1P MIN FOR ADLs. DENIES PAIN OR DISCOMFORT WHEN ASKED. IV TO LEFT WRIST IS PATENT WITH DRESSING THAT IS CDI. TELLY REPORTS SINUS @ 81. REFUSED SOME HS MEDS. STATED HE THINKS THEY MIGHT CAUSE SOME ITCHING. BP 90/60 MANUAL REPORTED TO MD. HE GAVE ORDERS GIVE 500 OF LR AT PREVIOUS DAYS RATE (100ML/H) PRN FOR A SBP OF LESS THAN 90.
[2023-02-18 05:53] LABS: Bun/Creatinine Ratio 24.9 (12.0-20.0); Creatinine, Blood 1.69 mg/dL (0.60-1.20)
--- NOTE | 2023-02-18 10:55 | NUR ---
AFIB WITH RATE AT 130-150 TELE CALLED & NOTIFIED THAT PT AFIB IS NOW SUSTAINING IN THE 130-150S. PT STATES HE IS A LITTLE SOB WITH EXERTION. DR. DEVLIN NOTIFIED OF THIS AND BP OF 93/53. ORDER TO START LR BOLUS OF 500CC AND THEN RUN AT 100ML/HR AFTER FOR A TOTAL OF ONE BAG. METOPERLOL OKAY TO BE GIVEN IF SBP REACHES ABOVE 100.
[2023-02-18 11:17] LABS: Phosphorus, Blood 4.2 mg/dL (2.5-4.9)
--- NOTE | 2023-02-18 11:37 | NUR ---
BP RECHECKED AFTER 500CC BOLUS BP INCREASED TO 98/65. PT CONVERTED BACK TO NSR WITH A RATE AT [address] DEVLIN NOTIFIED. 1 L OF LR TO BE GIVEN IN ADDITION TO BOLUS PER MD OVER 100/HR.
--- NOTE | 2023-02-18 17:33 | NUR ---
SHIFT SUMMARY PT CONVERTED BACK TO NSR FROM AFIB TODAY AFTER FLUID BOLUS THIS AM. PT NOW HAS MAINTANACE LR RUNNING 100ML/HR X1 BAG RUNNING. BP INCREASED ENOUGH TO GIVE METOPROLOL TODAY. MED WAS GIVEN LATE PER MD ORDER. SBP BACK INTO THE HIGH 90S THIS AFTERNOON. PT C/O WEAKNESS OVERALL. USING THE BEDSIDE COMMODE FOR BMS NOW INSTEAD OF WALKING TO THE BATHROOM. IMMODIUM GIVEN TWICE THIS SHIFT. BANANA FLAKES ALSO GIVEN, BUT PATIENT DOES NOT SEEM TO BE DRINKING THEM. PT SELF CATHED THIS AM AND STATES HE WILL AGAIN THIS EVENING. AT BEDSIDE MOST OF THE DAY. PLANS TO RETURN OBERNIGHT. MULTIPLE LIQUID BMS T/O THE DAY. BARRIER CREAM TO ANUS TO HELP WITH BREAKDOWN FROM STOOLS. VS REVIEWED. CALL LIGHT IN REACH. PT DENIES OTHER NEEDS AT THIS TIME. POOR APPETITE OBERALL, BUT PT IS NOW DRINKING ENSURES TO REPLACE MEALS.
[2023-02-19 04:57] LABS: BASOPHILS ABSOLUTE AUTO 0.05 K/mm3 (0.00-0.23); BASOPHILS PERCENT AUTO 0 % (0-2); EOSINOPHILS ABSOLUTE AUTO 0.39 K/mm3 (0.00-0.68); EOSINOPHILS PERCENT AUTO 2 % (0-6); Hematocrit 47.4 % (37.0-53.0); Hemoglobin 16.6 g/dL (13.5-17.5); IMMATURE GRAN ABSOLUTE AUTO 0.07 K/mm3 (0.00-0.10); IMMATURE GRAN PERCENT AUTO 0 % (0-1); LYMPHOCYTES ABSOLUTE AUTO 1.83 K/mm3 (0.84-5.20); LYMPHOCYTES PERCENT AUTO 11 % (21-46); MONOCYTES ABSOLUTE AUTO 2.26 K/mm3 (0.16-1.47); MONOCYTES PERCENT AUTO 13 % (4-13); Mean Corpuscular HGB 29.1 pg (26.0-34.0); Mean Corpuscular Volume 83 fL (80-100); Mean Platelet Volume 10.5 fL (9.1-12.4); NEUTROPHILS ABSOLUTE AUTO 12.26 K/mm3 (1.96-9.15); NEUTROPHILS PERCENT AUTO 73 % (41-73); Platelet Count 295 K/mm3 (150-400); RDW Coefficient Variation 14.6 % (11.7-14.2); RDW Standard Deviation 43.3 fL (35.1-46.3); White Blood Cell Count 16.86 K/mm3 (4.00-11.30)
[2023-02-19 05:15] VITALS: BP 105/69
[2023-02-19 05:24] LABS: Calcium, Blood 8.7 mg/dL (8.5-10.1); Creatinine, Blood 1.92 mg/dL (0.60-1.20); Magnesium, Blood 1.9 mg/dL (1.6-2.4); Phosphorus, Blood 4.2 mg/dL (2.5-4.9); Potassium, Blood 4.1 mmol/L (3.5-5.5)
--- NOTE | 2023-02-19 06:45 | NUR ---
SHIFT SUMMARY: PT IS ADMITTED FOR SYNCOPE AND IS A FULL CODE. IS ALERT AND ABLE TO MAKE NEEDS KNOWN. ADLs HAVE BEEN 1P MIN THROUGH SHIFT FOR STABILITY DUE TO INCREASED WEAKNESS. GENERAL ACHES EXPRESSED WHEN ASKED ABOUT PAIN BUT DECLINED ANY PAIN MANAGEMENT AT THIS TIME. IV TO LEFT FOREARM IS PATENT WITH DRESSING THAT IS CDI. TELLY REPORTS SINUS @ 80. ABLE TO SELF CATH. LOOSE STOOLS DARK BROWN IN COLOR IN MOD/LARGE VOLUMES NOTED. EMESIS X1 DARK BROWN IN COLOR EARLY IN SHIFT.
[2023-02-19 07:53] VITALS: BP 100/73
[2023-02-19 17:24] VITALS: BP 107/76
--- NOTE | 2023-02-19 18:36 | NUR ---
SHIFT SUMMARY: NO ACUTE EVENTS. SOFT BP IMPROVED AFTER IVF INFUSION. FREQUENCY OF BM'S HAS SLOWED AND AMOUNT EACH TIME HAS DECREASED SIGNIFICANTLY. BY DINNER TIME HE WAS FEELING BETTER. EDUCATED PT AND HIS ABOUT HOW LOW BP AFFECTS KIDNEY FUNCTION, HOW FAST HEART RATE AFFECTS CARDIAC OUPUT, AND HOW FLUID LOSS THROUGH DIARRHEA CAN RAISE HR AND LOWER BP; VERBALIZED UNDERSTANDING. GETTING UP TO BSC WITH SBA. BY DINNER, APPETITE HAD ALSO IMPROVED. STRAIGHT CATHS HIMSELF, BUT STATED HE HADN'T HAD A LOT OF OUTPUT THE LAST TIME HE DID IT.
[2023-02-19 19:34] VITALS: BP 108/73
[2023-02-20 04:55] VITALS: BP 90/58
[2023-02-20 05:12] LABS: BASOPHILS ABSOLUTE AUTO 0.03 K/mm3 (0.00-0.23); BASOPHILS PERCENT AUTO 0 % (0-2); EOSINOPHILS ABSOLUTE AUTO 0.51 K/mm3 (0.00-0.68); EOSINOPHILS PERCENT AUTO 6 % (0-6); Hematocrit 40.9 % (37.0-53.0); Hemoglobin 14.2 g/dL (13.5-17.5); IMMATURE GRAN ABSOLUTE AUTO 0.11 K/mm3 (0.00-0.10); IMMATURE GRAN PERCENT AUTO 1 % (0-1); LYMPHOCYTES ABSOLUTE AUTO 2.59 K/mm3 (0.84-5.20); LYMPHOCYTES PERCENT AUTO 30 % (21-46); MONOCYTES ABSOLUTE AUTO 1.18 K/mm3 (0.16-1.47); MONOCYTES PERCENT AUTO 14 % (4-13); Mean Corpuscular HGB 29.2 pg (26.0-34.0); Mean Corpuscular HGB Conc 34.7 g/dL (31.5-36.5); Mean Corpuscular Volume 84 fL (80-100); Mean Platelet Volume 10.5 fL (9.1-12.4); NEUTROPHILS ABSOLUTE AUTO 4.09 K/mm3 (1.96-9.15); NEUTROPHILS PERCENT AUTO 48 % (41-73); Platelet Count 246 K/mm3 (150-400); RDW Coefficient Variation 14.7 % (11.7-14.2); RDW Standard Deviation 45.2 fL (35.1-46.3); Red Blood Cell Count 4.86 M/mm3 (4.30-5.90); White Blood Cell Count 8.51 K/mm3 (4.00-11.30)
--- NOTE | 2023-02-20 05:57 | NUR ---
SHIFT SUMMARY JESÚS IS ALERT AND FULLY ORIENTED AT START OF SHIFT. HE IS COOPERATIVE WITH CARE AND PLEASANT. PT INDEPENDENT IN ROOM W/ PRESENT TO ASSIST. PT GOT A SHOWER TONIGHT, AND PERFORMED HIS USUAL ELIMINATION NEEDS HIMSELF. NO ACUTE EVENTS TONIGHT, NO CHANGES IN CONDITION, PT REPORTS FEELING BETTER THAN HE HAS IN THE LAST FEW DAYS. PT RESTING IN BED WITH CALL LIGHT IN REACH.
[2023-02-20 06:32] LABS: Albumin, Blood 2.9 g/dL (3.4-5.0); Albumin/Globulin Ratio 0.8 (0.8-1.8); Bilirubin, Total 0.4 mg/dL (0.1-1.0); Creatinine, Blood 1.42 mg/dL (0.60-1.20); Globulin, Blood 3.5 g/dL (2.2-4.0); Potassium, Blood 3.7 mmol/L (3.5-5.5); Total Protein, Blood 6.4 g/dL (6.4-8.2)
[2023-02-20 07:47] VITALS: BP 91/69
[2023-02-20] MEDS ORDERED: LOPE2C PO (11:55)
--- NOTE | 2023-02-20 16:32 | NUR ---
PT DISCHARGED THE PT VERBALIZED UNDERSTANDING OF THE DC INSTRUCTIONS, THE PT WAS SCHEDULED A POST HOSPITAL REVIEW APPOINTMENT WITH ANNETTA PRIOR TO DC. THE PT DECLINED A WHEELCHAIR AND AMBULATED OUT STEADY ON HIS FEET ACCOMPANIED BY HIS
== END 2023-02-20 12:55 | disposition home or self-care (01) | DRG 699 ==
LOC: ER 02:28 → MEDS 02:29 → ENPENDDIS 02-20 11:16 → MEDS 02-20 12:55
PROVIDERS: Emergency Medicine; Family Medicine; Internal Medicine; ADMIT Internal Medicine
DX: T83.518A Infection and inflammatory reaction due to other urinary catheter, initial encounter (principal); E87.20 Acidosis, unspecified; I50.22 Chronic systolic (congestive) heart failure; I13.0 Hypertensive heart and chronic kidney disease with heart failure and stage 1 through stage 4 chronic kidney disease, or unspecified chronic kidney disease; N39.0 Urinary tract infection, site not specified; N17.9 Acute kidney failure, unspecified; R55 Syncope and collapse; K21.9 Gastro-esophageal reflux disease without esophagitis; I25.10 Atherosclerotic heart disease of native coronary artery without angina pectoris; S09.90XA Unspecified injury of head, initial encounter; N40.0 Benign prostatic hyperplasia without lower urinary tract symptoms; E86.0 Dehydration; N18.9 Chronic kidney disease, unspecified; I95.9 Hypotension, unspecified; W18.30XA Fall on same level, unspecified, initial encounter; I48.0 Paroxysmal atrial fibrillation; A08.4 Viral intestinal infection, unspecified; Z96.612 Presence of left artificial shoulder joint; Y84.6 Urinary catheterization as the cause of abnormal reaction of the patient, or of later complication, without mention of misadventure at the time of the procedure; Z96.611 Presence of right artificial shoulder joint; Z79.899 Other long term (current) drug therapy; Z95.5 Presence of coronary angioplasty implant and graft; Z88.8 Allergy status to other drugs, medicaments and biological substances; Z88.1 Allergy status to other antibiotic agents; Z79.01 Long term (current) use of anticoagulants; Z87.891 Personal history of nicotine dependence; Z98.890 Other specified postprocedural states
CPT/HCPCS: 36415; 51701; 70450; 70486; 72125; 76770; 80048; 80053; 80069; 81001; 82330; 82570; 83605; 83735; 83880; 84100; 84300; 84484; 84540; 85025; 87077; 87086; 87186; 87507; 93005; 93010; 96360; 96361; 96374; 96376; 99285-25; A9270; C9113; G0378; J0696; J7030; J7120

== ENCOUNTER 2023-11-20 11:30 | Inpatient (IN) | payer OTHER, MEDICARE, BC ==
[~2023-11-20] VITALS: Ht 175.3 cm; Wt 79.0 kg
[~2023-11-20 11:30] MED LIST changes: +AMIODARONE HCL200 M1 PO; +Aspir 8181 MG PO; +C COMPLEX1000 M1 PO; +LOPE2C PO; +LOSA50 PO; +METOPROLOL SUCC25 MG PO
[2023-11-20 12:17] LABS: BASOPHILS ABSOLUTE AUTO 0.06 K/mm3 (0.00-0.23); BASOPHILS PERCENT AUTO 0 % (0-2); EOSINOPHILS PERCENT AUTO 1 % (0-6); Hematocrit 47.8 % (37.0-53.0); Hemoglobin 15.7 g/dL (13.5-17.5); IMMATURE GRAN ABSOLUTE AUTO 0.06 K/mm3 (0.00-0.10); IMMATURE GRAN PERCENT AUTO 0 % (0-1); LYMPHOCYTES ABSOLUTE AUTO 1.08 K/mm3 (0.84-5.20); LYMPHOCYTES PERCENT AUTO 8 % (21-46); MONOCYTES ABSOLUTE AUTO 2.06 K/mm3 (0.16-1.47); MONOCYTES PERCENT AUTO 15 % (4-13); Mean Corpuscular HGB 29.7 pg (26.0-34.0); Mean Corpuscular HGB Conc 32.8 g/dL (31.5-36.5); Mean Corpuscular Volume 90 fL (80-100); Mean Platelet Volume 11.2 fL (9.1-12.4); NEUTROPHILS ABSOLUTE AUTO 10.44 K/mm3 (1.96-9.15); NEUTROPHILS PERCENT AUTO 76 % (41-73); Platelet Count 166 K/mm3 (150-400); RDW Coefficient Variation 12.8 % (11.7-14.2); RDW Standard Deviation 42.3 fL (35.1-46.3); Red Blood Cell Count 5.29 M/mm3 (4.30-5.90)
[2023-11-20 12:39] LABS: Albumin, Blood 3.5 g/dL (3.4-5.0); Albumin/Globulin Ratio 0.9 (0.8-1.8); Bilirubin, Total 0.6 mg/dL (0.1-1.0); Bun/Creatinine Ratio 13.7 (12.0-20.0); Calcium, Blood 8.6 mg/dL (8.5-10.1); Creatinine, Blood 1.24 mg/dL (0.60-1.20); Globulin, Blood 4.1 g/dL (2.2-4.0); Potassium, Blood 3.8 mmol/L (3.5-5.5); Total Protein, Blood 7.6 g/dL (6.4-8.2)
[2023-11-20] MEDS ORDERED: CeFAZolin Sodium 2,000 MG in NS 100 ML IV PRN (14:05)
[2023-11-20] MEDS ORDERED: B COMPLEX FORM0.4 MG PO (15:54)
[2023-11-20 16:00] VITALS: BP 115/73
--- NOTE | 2023-11-20 17:21 | NUR ---
Pt was given education on the room, its safety and pt care items in the room. Also given education about the plan for pacemaker tomorrow, and a brief description of the care and treatment before and after the pacemaker surgery. Dr. Garcia came to see the patient and also gave him education and opportunity to ask questions. Patricia was at the bedside during this time.
[2023-11-20] MEDS ORDERED: Ondansetron 4 MG TAB PO PRN (17:30)
[2023-11-20] MEDS ORDERED: Temazepam 15 MG Cap PO PRN (17:30)
[2023-11-20] MEDS ORDERED: Ondansetron HCl 2 MG / ML 2ML Vial IV PRN (17:35)
--- NOTE | 2023-11-20 18:00 | NUR ---
Pt. is awake in bed when he welcomed my visit. Pt. is pleasant, and verbalized that he would be getting a pacemaker the next day. Pt. disp[layed evidence of awareness and engagement. Facilitated a life review and listened with interest and empathy. Considered matters of thi and belief. Pt. displayed evidence of being very confident going into the procedure. Prayed with Pt. Pt. verbalized gratitude for the spiritual care visit and welcomed this family assistant to return.
[2023-11-20 19:07] LABS: Source, Urine Clean Catch
[2023-11-20 19:14] LABS: Appearance, Urine Clear (Clear); Bilirubin, Urine Neg (Neg); Blood, Urine Neg (Neg); Color, Urine Yellow (P-Yellow); Glucose Qualitative, Urine 4+ (Neg); Ketones, Urine 3+ (Neg); Leukocyte Esterase, Urine Neg (Neg); Nitrite, Urine Neg (Neg); Protein, Urine 1+ (Neg); Specific Gravity, Urine 1.015 (1.003-1.022); Urobilinogen, Urine NORM (Normal)
[2023-11-20] MEDS ORDERED: Clopidogrel Bisulfate 75 MG Tab PO SCH (21:00)
[2023-11-20 21:11] VITALS: BP 104/59
[2023-11-21] VITALS (10 sets, daily range): BP systolic 107–132; BP diastolic 59–95
--- NOTE | 2023-11-21 05:06 | NUR ---
shift summary. shift has been unremarkable. pt aox4, pleasant, cooperative with care, calls appropriately, able to make needs known. has rested comfortably throughout most of shift thus far. vitals stable. continues to deny any pain. has been npo since midnight pending pacemaker placement today. continues to run sinus. pt reports hx of BPH, at home self caths BID for management. has not had any urine output tonight but reports that this is normal for him and he was planning on straight cathing himself in the morning before his procedure. spoke with hansa torres for pt to straight cath himself using his equipment per his request. shift has otherwise been unremarkable. bed locked in lowest position. call light left within reach. continuing to monitor.
[2023-11-21] MEDS ORDERED: Pantoprazole Sodium 20 MG Tab PO SCH (06:00)
--- NOTE | 2023-11-21 07:38 | NUR ---
UPDATE: PT TO HOSIERY LOOPER FOR PACEMAKER PLACEMENT. VSS.
[2023-11-21] MEDS ORDERED: CeFAZolin Sodium 2,000 MG VIAL ONE (07:41)
[2023-11-21] MEDS ORDERED: NS 100 ML IV ONE (07:41)
[2023-11-21] MEDS ORDERED: Heparin Sodium 1000 Units/ML 10ML MDV ONE (07:41)
[2023-11-21] MEDS ORDERED: Lidocaine HCl 1% 30 ML SDV ONE (07:41)
[2023-11-21] MEDS ORDERED: Lidocaine HCl 2% 20 ML MDV ONE ×2 (07:41→07:45)
[2023-11-21] MEDS ORDERED: NS 500 ML IV ONE ×2 (07:41→07:49)
[2023-11-21] MEDS ORDERED: CeFAZolin Sodium 1000 mg Vial ONE (07:46)
[2023-11-21] MEDS ORDERED: Bupivacaine 0.5% HCl 5 MG/ML 30MLVIAL ONE (07:48)
[2023-11-21] MEDS ORDERED: NS 1,000 ML IV ONE (07:51)
[2023-11-21] MEDS ORDERED: NS 250 ML IV ONE (07:51)
[2023-11-21] MEDS ORDERED: FentaNYL Citrate 50 MCG/ML 2 ML Injection ONE ×2 (07:56→08:12)
[2023-11-21] MEDS ORDERED: Midazolam HCl 1MG / ML 2ML Vial ONE ×2 (07:56→08:12)
[2023-11-21] MEDS ORDERED: Losartan Potassium 25 MG Tab PO SCH (09:00)
[2023-11-21] MEDS ORDERED: Empagliflozin 10 MG TAB PO SCH (09:00)
[2023-11-21] MEDS ORDERED: Sacubitril/Valsartan 24 MG-26 MG Tab PO SCH (09:00)
[2023-11-21] MEDS ORDERED: Lidocaine 2%-Epineph 1:100000 20 ML MDV ONE (09:08)
[2023-11-21] MEDS ORDERED: OxyCODONE HCL 5 MG TAB PO PRN (09:45)
[2023-11-21] MEDS ORDERED: Acetaminophen 325 MG TABLET PO PRN (09:45)
[2023-11-21] MEDS ORDERED: HYDROcodone 10-APAP 325 TAB PO PRN (09:50)
--- NOTE | 2023-11-21 11:21 | NUR ---
UPDATE: PT BACK FROM CORPORATE ADMINISTRATOR AT 1035. PT WITH DUAL CHAMBER PACEMAKER, PRESSURE DRESSING AND SLING APPLIED. PRESSURE DRESSING TO REMAIN ON UNTI 11/22/23 PER MANAGER FILE. VSS. AT BEDSIDE AND UPDATED.
[2023-11-21] MEDS ORDERED: CeFAZolin Sodium 2,000 MG in NS 100 ML IV SCH (16:00)
--- NOTE | 2023-11-21 16:39 | NUR ---
SHIFT SUMMARY: PT ALERT AND ORIENTED X4, ABLE TO FOLLOW COMMANDS AND MAKE NEEDS KNOWN. STRENGTH EQUAL BILATERALLY. BP AND HR STABLE. AFEBRILE. SPO2 >96% ON ROOM AIR. RESPIRATIONS EVEN AND UNLABORED. PT POST PACEMAKER, TOLERATED WELL. COMPRESSION BANDAGE AND SLING IN PLACE. ORDERS TO REMOVE COMPRESSION BANDAGE 11/22/23. PT DENIES CP/PRESSURE. PULSES STRONG AND EQUAL THROUGHOUT. ABD SOFT NON TENDER, BOWEL SOUNDS +. PT SBA TO AND FROM BATHROOM, SELF CATHS. NO BM. POSSIBLE DISCHARGE IN AM. AT BEDSIDE AND UPDATED ON PT PLAN OF CARE. BED IN LOW, CALL LIGHT IN REACH, WILL REPORT TO ONCOMING RN.
[2023-11-21] MEDS ORDERED: Metoprolol Succinate 25 MG TABCR PO SCH (21:00)
[2023-11-22 00:11] VITALS: BP 123/72
[2023-11-22 04:16] LABS: BASOPHILS ABSOLUTE AUTO 0.02 K/mm3 (0.00-0.23); BASOPHILS PERCENT AUTO 0 % (0-2); EOSINOPHILS PERCENT AUTO 2 % (0-6); Hematocrit 44.1 % (37.0-53.0); Hemoglobin 14.9 g/dL (13.5-17.5); IMMATURE GRAN ABSOLUTE AUTO 0.03 K/mm3 (0.00-0.10); IMMATURE GRAN PERCENT AUTO 0 % (0-1); LYMPHOCYTES ABSOLUTE AUTO 1.06 K/mm3 (0.84-5.20); LYMPHOCYTES PERCENT AUTO 11 % (21-46); MONOCYTES ABSOLUTE AUTO 1.22 K/mm3 (0.16-1.47); MONOCYTES PERCENT AUTO 13 % (4-13); Mean Corpuscular HGB 29.7 pg (26.0-34.0); Mean Corpuscular HGB Conc 33.8 g/dL (31.5-36.5); Mean Corpuscular Volume 88 fL (80-100); Mean Platelet Volume 10.8 fL (9.1-12.4); NEUTROPHILS ABSOLUTE AUTO 6.85 K/mm3 (1.96-9.15); NEUTROPHILS PERCENT AUTO 73 % (41-73); Platelet Count 157 K/mm3 (150-400); RDW Standard Deviation 41.5 fL (35.1-46.3); Red Blood Cell Count 5.01 M/mm3 (4.30-5.90); White Blood Cell Count 9.38 K/mm3 (4.00-11.30)
[2023-11-22 04:46] LABS: Bun/Creatinine Ratio 23.8 (12.0-20.0); Calcium, Blood 8.8 mg/dL (8.5-10.1); Creatinine, Blood 1.05 mg/dL (0.60-1.20)
[2023-11-22 05:12] VITALS: BP 116/77
--- NOTE | 2023-11-22 05:12 | NUR ---
SHIFT SUMMARY. SHIFT HAS BEEN UNREMARKABLE. PT AOX4, PLEASANT, COOPERATIVE WITH CARE, CALLS APPROPRIATELY, ABLE TO MAKE NEEDS KNOWN. HAS RESTED COMFORTABLY THROUGHOUT MOST OF SHIFT. CONTINUES TO DENY PAIN. VITALS HAVE REMAINED STABLE. PT HAS RUN SINUS THROUGHOUT SHIFT, ALMOST ENTIRELY UNPACED WITH EXCEPTION OF ONE NOTED RUN OF PACED BEATS EARLY THIS MORNING. EKG COMPLETED @ 0500 THIS MORNING, NOW SITTING IN CHART. OTHERWISE SHIFT HAS BEEN UNREMARKABLE. BED LOCKED IN LOWEST POSITION. CALL LIGHT LEFT WITHIN REACH. CONTINUING TO MONITOR.
[2023-11-22 08:30] VITALS: BP 119/69
--- NOTE | 2023-11-22 10:06 | NUR ---
AM NOTE... ASSUMED CARE OF PT AT 0700, PT IS A&Ox4 AND SBA IN THE ROOM. PACER SITE IS STABLE WITH A SOFT HEMATOMA NOTED TO THE LEFT SIDE OF THE SITE. AREA IS TENDER BUT SOFT TO PALP. PT IS IN SR WITH NO PACER SPIKES NOTED AT THE TIME OF THIS ASSESSMENT. PT'S BP IS STABLE. PT DENEIS ANY PAIN OR SYNCOPAL EPISODES SINCE PACER PLACEMENT. PLANS FOR POSSIBLE D/C HOME TODAY. WILL CONTINUE TO MONITOR.
[2023-11-22] MEDS ORDERED: LOSA25 PO (13:34)
== END 2023-11-22 13:51 | disposition home or self-care (01) | DRG 244 ==
LOC: ER 11:30 → PCU 14:00
PROVIDERS: Internal Medicine Cardiovascular Disease; Student in an Organized Health Care Education/Training Program; ADMIT Internal Medicine
PROC: 0JH606Z Insertion of Pacemaker, Dual Chamber into Chest Subcutaneous Tissue and Fascia, Open Approach (ICD-10-PCS; principal; 2023-11-21)
PROC: 02H63JZ Insertion of Pacemaker Lead into Right Atrium, Percutaneous Approach (ICD-10-PCS; 2023-11-21)
PROC: 02HK3JZ Insertion of Pacemaker Lead into Right Ventricle, Percutaneous Approach (ICD-10-PCS; 2023-11-21)
DX: I44.2 Atrioventricular block, complete (principal); I25.10 Atherosclerotic heart disease of native coronary artery without angina pectoris; I25.5 Ischemic cardiomyopathy; E78.5 Hyperlipidemia, unspecified; I49.5 Sick sinus syndrome; I12.9 Hypertensive chronic kidney disease with stage 1 through stage 4 chronic kidney disease, or unspecified chronic kidney disease; N18.30 Chronic kidney disease, stage 3 unspecified; K21.9 Gastro-esophageal reflux disease without esophagitis; Z98.890 Other specified postprocedural states; Z88.1 Allergy status to other antibiotic agents; Z88.8 Allergy status to other drugs, medicaments and biological substances; Z79.01 Long term (current) use of anticoagulants; Z79.899 Other long term (current) drug therapy
CPT/HCPCS: 33208; 36415; 71045; 71046; 80048; 80053; 84484; 85025; 93005; 93010; 93308; 94760; 94762; 99152; 99153; 99285-25; A9270; C1785; C1894; C1898; J0690; J1644; J2250; J2470; J3010; J7030; J7040; J7050; Q9967

== ENCOUNTER 2024-04-25 08:29 | Emergency (ER) | payer MEDICARE, BC ==
[~2024-04-25] VITALS: Ht 177.8 cm; Wt 79.4 kg
[~2024-04-25 08:29] MED LIST changes: +B COMPLEX FORM0.4 MG PO; +LOSA25 PO
[2024-04-25 09:01] VITALS: BP 121/90
[2024-04-25] MEDS ORDERED: Fluorescein Sod 1MG Opth Strips RIGHTEYE ONE (09:30)
[2024-04-25] MEDS ORDERED: Tetracaine HCl/Pf 0.5% Opth Soln 4 ml BOTHEYES ONE (09:30)
== END 2024-04-25 10:05 | disposition home or self-care (01) ==
LOC: ER 08:29
DX: B30.9 Viral conjunctivitis, unspecified (principal); K21.9 Gastro-esophageal reflux disease without esophagitis; Z79.01 Long term (current) use of anticoagulants; Z79.899 Other long term (current) drug therapy
CPT/HCPCS: 99283; A9270

== ENCOUNTER 2024-12-04 18:42 | Observation (INO) | payer OTHER, MEDICARE, BC ==
[~2024-12-04] VITALS: Ht 177.8 cm; Wt 79.4 kg
[2024-12-04 20:02] LABS: BASOPHILS ABSOLUTE AUTO 0.06 K/mm3 (0.00-0.23); BASOPHILS PERCENT AUTO 1 % (0-2); EOSINOPHILS ABSOLUTE AUTO 0.37 K/mm3 (0.00-0.68); EOSINOPHILS PERCENT AUTO 5 % (0-6); Hematocrit 41.6 % (37.0-53.0); Hemoglobin 14.4 g/dL (13.5-17.5); IMMATURE GRAN ABSOLUTE AUTO 0.07 K/mm3 (0.00-0.10); IMMATURE GRAN PERCENT AUTO 1 % (0-1); LYMPHOCYTES ABSOLUTE AUTO 2.45 K/mm3 (0.84-5.20); LYMPHOCYTES PERCENT AUTO 35 % (21-46); MONOCYTES ABSOLUTE AUTO 0.69 K/mm3 (0.16-1.47); MONOCYTES PERCENT AUTO 10 % (4-13); Mean Corpuscular HGB Conc 34.6 g/dL (31.5-36.5); Mean Corpuscular Volume 88 fL (80-100); NEUTROPHILS ABSOLUTE AUTO 3.37 K/mm3 (1.96-9.15); NEUTROPHILS PERCENT AUTO 48 % (41-73); NRBC ABSOLUTE 0.00 K/mm3 (0.00-0.02); NRBC Auto 0.0 /100 WBC (0.0-0.2); Platelet Count 191 K/mm3 (150-400); RDW Coefficient Variation 13.7 % (11.7-14.2); RDW Standard Deviation 43.5 fL (35.1-46.3)
[2024-12-04 20:05] LABS: Source, Urine Clean Catch
[2024-12-04 20:08] LABS: Color, Urine Amber (P-Yellow); Glucose Qualitative, Urine 4+ (Neg); Ketones, Urine 1+ (Neg); Leukocyte Esterase, Urine 1+ (Neg); Protein, Urine Neg (Neg); Specific Gravity, Urine 1.015 (1.003-1.022); Urobilinogen, Urine 3+ (Normal)
[2024-12-04 20:18] LABS: Bilirubin, Urine 2+ (Neg)
[2024-12-04 20:19] LABS: Red Blood Cells, Urine 0-2 /hpf (0-2)
[2024-12-04 20:36] LABS: Alanine Aminotransfer (ALT/SGP 284 U/L (12-78); Albumin, Blood 2.9 g/dL (3.4-5.0); Albumin/Globulin Ratio 0.8 (0.8-1.8); Anion Gap 10 mmol/L (3-11); Aspartate Aminotrans (AST/SGOT 195 U/L (12-37); Bilirubin, Total 4.0 mg/dL (0.1-1.0); Blood Urea Nitrogen 16 mg/dL (8-24); CO2, Blood 22 mmol/L (21-32); Calcium, Blood 8.4 mg/dL (8.5-10.1); Chloride, Blood 108 mmol/L (98-108); Creatinine, Blood 0.87 mg/dL (0.60-1.20); Globulin, Blood 3.7 g/dL (2.2-4.0); Glucose, Blood 122 mg/dL (70-99); Potassium, Blood 3.1 mmol/L (3.5-5.5); Sodium, Blood 137 mmol/L (136-145); Total Protein, Blood 6.6 g/dL (6.4-8.2)
[2024-12-04 23:55] LABS: Prothrombin Time Results 11.0 Sec (9.7-11.5)
[2024-12-04] MEDS ORDERED: CefTRIAXone Sodium 1,000 MG in NS 100 ML IV ONE (23:55)
[2024-12-04 23:59] LABS: Acetaminophen, Random <2.0 ug/mL (10.0-30.0)
[2024-12-05] MEDS ORDERED: Ondansetron HCl 2 MG / ML 2ML Vial IV PRN (01:05)
[2024-12-05] MEDS ORDERED: FLU VACC TS2025(65UP)/MF59C/PF 45 MCG/0.5 ML SYRINGE IM SCH (01:05)
[2024-12-05 02:00] VITALS: BP 157/89
[2024-12-05 04:51] LABS: BASOPHILS ABSOLUTE AUTO 0.04 K/mm3 (0.00-0.23); BASOPHILS PERCENT AUTO 1 % (0-2); EOSINOPHILS ABSOLUTE AUTO 0.37 K/mm3 (0.00-0.68); EOSINOPHILS PERCENT AUTO 6 % (0-6); Hematocrit 40.6 % (37.0-53.0); Hemoglobin 14.1 g/dL (13.5-17.5); IMMATURE GRAN ABSOLUTE AUTO 0.08 K/mm3 (0.00-0.10); IMMATURE GRAN PERCENT AUTO 1 % (0-1); LYMPHOCYTES ABSOLUTE AUTO 1.99 K/mm3 (0.84-5.20); LYMPHOCYTES PERCENT AUTO 30 % (21-46); MONOCYTES ABSOLUTE AUTO 0.65 K/mm3 (0.16-1.47); MONOCYTES PERCENT AUTO 10 % (4-13); Mean Corpuscular HGB Conc 34.7 g/dL (31.5-36.5); Mean Corpuscular Volume 86 fL (80-100); NEUTROPHILS ABSOLUTE AUTO 3.56 K/mm3 (1.96-9.15); NEUTROPHILS PERCENT AUTO 53 % (41-73); NRBC ABSOLUTE 0.00 K/mm3 (0.00-0.02); NRBC Auto 0.0 /100 WBC (0.0-0.2); Platelet Count 171 K/mm3 (150-400); RDW Coefficient Variation 13.5 % (11.7-14.2); RDW Standard Deviation 42.5 fL (35.1-46.3)
[2024-12-05 05:11] VITALS: BP 153/89
[2024-12-05 05:25] LABS: Alanine Aminotransfer (ALT/SGP 272.0 U/L (12-78); Albumin, Blood 2.8 g/dL (3.4-5.0); Albumin/Globulin Ratio 0.8 (0.8-1.8); Anion Gap 9.0 mmol/L (3-11); Aspartate Aminotrans (AST/SGOT 169.0 U/L (12-37); Bilirubin, Total 3.4 mg/dL (0.1-1.0); Blood Urea Nitrogen 14.0 mg/dL (8-24); CO2, Blood 24.0 mmol/L (21-32); Calcium, Blood 8.4 mg/dL (8.5-10.1); Chloride, Blood 108.0 mmol/L (98-108); Creatinine, Blood 0.85 mg/dL (0.60-1.20); Globulin, Blood 3.3 g/dL (2.2-4.0); Glucose, Blood 90.0 mg/dL (70-99); Magnesium, Blood 2.0 mg/dL (1.6-2.4); Potassium, Blood 3.0 mmol/L (3.5-5.5); Sodium, Blood 138.0 mmol/L (136-145); Total Protein, Blood 6.1 g/dL (6.4-8.2)
--- NOTE | 2024-12-05 05:53 | NUR ---
PT ALERT AND ORIENTED AND INDEPENDENT IN ROOM, WAS PRESENT OVER NIGHT. PATIENT RESTED COMFORTABLY WITH NO ACUTE EVENTS.
[2024-12-05 07:17] VITALS: BP 141/88
--- NOTE | 2024-12-05 11:20 | NUR ---
SHIFT SUMMARY AND DISCHARGE PATIENT D/C TO HOME. PRINTED AND REVIEWED DISCHARGE PAPERS WITH PATIENT AND . PATIENT INDEPENDENT IN THE ROOM. IS AT BEDSIDE. PATIENT HAVE A HISTORY OF SELF CATHING - 800 ML IN THE URINAL. CHECK BELONGINGS WITH PATIENT AND PRIOR TO DEPARTURE. PATIENT LEFT ROOM IN A WHEELCHAIR. IV D/C'D BEFORE DISCHARGE.
== END 2024-12-05 11:20 | disposition home or self-care (01) ==
LOC: ER 18:42 → MEDS 18:43
PROVIDERS: Emergency Medicine; ADMIT Student in an Organized Health Care Education/Training Program
DX: K80.21 Calculus of gallbladder without cholecystitis with obstruction (principal); R09.89 Other specified symptoms and signs involving the circulatory and respiratory systems; E87.6 Hypokalemia; K92.1 Melena; K21.9 Gastro-esophageal reflux disease without esophagitis; I48.91 Unspecified atrial fibrillation; R55 Syncope and collapse; R00.1 Bradycardia, unspecified; I25.10 Atherosclerotic heart disease of native coronary artery without angina pectoris; I12.9 Hypertensive chronic kidney disease with stage 1 through stage 4 chronic kidney disease, or unspecified chronic kidney disease; N18.30 Chronic kidney disease, stage 3 unspecified; N31.9 Neuromuscular dysfunction of bladder, unspecified; Z87.891 Personal history of nicotine dependence; Z79.01 Long term (current) use of anticoagulants; Z79.02 Long term (current) use of antithrombotics/antiplatelets; Z79.84 Long term (current) use of oral hypoglycemic drugs; Z79.899 Other long term (current) drug therapy; Z88.1 Allergy status to other antibiotic agents; Z88.8 Allergy status to other drugs, medicaments and biological substances; Z95.0 Presence of cardiac pacemaker; Z95.5 Presence of coronary angioplasty implant and graft
CPT/HCPCS: 36415; 74177; 76705; 80053; 81001; 83605; 83690; 83735; 84484; 85025; 85610; 86850; 86900; 86901; 93005; 93010; 96374; 99285-25; A9270; G0378; G0480; J0696; Q9967

== ENCOUNTER 2025-02-01 09:56 | Emergency (ER) | payer OTHER ==
[~2025-02-01] VITALS: Ht 177.8 cm; Wt 81.7 kg
[2025-02-01 11:00] LABS: BASOPHILS ABSOLUTE AUTO 0.06 K/mm3 (0.00-0.23); BASOPHILS PERCENT AUTO 1 % (0-2); EOSINOPHILS ABSOLUTE AUTO 0.25 K/mm3 (0.00-0.68); EOSINOPHILS PERCENT AUTO 2 % (0-6); Hematocrit 49.6 % (37.0-53.0); Hemoglobin 16.2 g/dL (13.5-17.5); IMMATURE GRAN ABSOLUTE AUTO 0.04 K/mm3 (0.00-0.10); IMMATURE GRAN PERCENT AUTO 0 % (0-1); LYMPHOCYTES ABSOLUTE AUTO 1.86 K/mm3 (0.84-5.20); LYMPHOCYTES PERCENT AUTO 15 % (21-46); MONOCYTES ABSOLUTE AUTO 0.89 K/mm3 (0.16-1.47); MONOCYTES PERCENT AUTO 7 % (4-13); Mean Corpuscular HGB Conc 32.7 g/dL (31.5-36.5); Mean Corpuscular Volume 91 fL (80-100); NEUTROPHILS ABSOLUTE AUTO 8.95 K/mm3 (1.96-9.15); NEUTROPHILS PERCENT AUTO 74 % (41-73); NRBC ABSOLUTE 0.00 K/mm3 (0.00-0.02); NRBC Auto 0.0 /100 WBC (0.0-0.2); Platelet Count 218 K/mm3 (150-400); RDW Coefficient Variation 13.1 % (11.7-14.2); RDW Standard Deviation 42.8 fL (35.1-46.3)
[2025-02-01 11:19] LABS: Alanine Aminotransfer (ALT/SGP 35.0 U/L (12-78); Albumin, Blood 3.7 g/dL (3.4-5.0); Albumin/Globulin Ratio 1.0 (0.8-1.8); Anion Gap 8.0 mmol/L (3-11); Aspartate Aminotrans (AST/SGOT 25.0 U/L (12-37); Bilirubin, Total 0.7 mg/dL (0.1-1.0); Blood Urea Nitrogen 21.0 mg/dL (8-24); CO2, Blood 24.0 mmol/L (21-32); Calcium, Blood 8.7 mg/dL (8.5-10.1); Chloride, Blood 111.0 mmol/L (98-108); Creatinine, Blood 1.18 mg/dL (0.60-1.20); Globulin, Blood 3.7 g/dL (2.2-4.0); Glucose, Blood 139.0 mg/dL (70-99); Potassium, Blood 4.0 mmol/L (3.5-5.5); Sodium, Blood 139.0 mmol/L (136-145); Total Protein, Blood 7.4 g/dL (6.4-8.2)
[2025-02-01] MEDS ORDERED: NS 1,000 ML IV SCH (12:20)
[2025-02-01 14:43] VITALS: BP 130/93
== END 2025-02-01 14:44 | disposition home or self-care (01) ==
LOC: ER 09:56
PROVIDERS: Emergency Medicine
DX: R55 Syncope and collapse (principal); Z88.8 Allergy status to other drugs, medicaments and biological substances; Z79.899 Other long term (current) drug therapy; I10 Essential (primary) hypertension; K21.9 Gastro-esophageal reflux disease without esophagitis; I48.91 Unspecified atrial fibrillation
CPT/HCPCS: 71045; 80053; 84484; 85025; 93005; 93010; 99284-25; J7030